=== PATIENT | female | born 1945 | race Caucasian/White ===

== ENCOUNTER 2019-04-25 14:47 | Emergency (ER) | payer MEDICARE, OTHER ==
[~2019-04-25] VITALS: Ht 157.5 cm; Wt 73.6 kg
[2019-04-25] MEDS ORDERED: LEVO50 PO (15:22)
[2019-04-25] MEDS ORDERED: CHOL200016 PO (15:22)
[2019-04-25] MEDS ORDERED: TRAZ-257 PO (15:22)
[2019-04-25] MEDS ORDERED: RISP.5 IM (15:23)
[2019-04-25] MEDS ORDERED: ATOR10TA84 PO (15:23)
[2019-04-25] MEDS ORDERED: ACETAMINOPHEN 500 MG TABLET PO ONE (15:30)
[2019-04-25 17:01] VITALS: BP 145/85
== END 2019-04-25 17:15 | disposition home or self-care (01) ==
LOC: EMS 14:51 → EDBD 14:51 → EMS 17:15
DX: S80.02XA Contusion of left knee, initial encounter (principal); S80.01XA Contusion of right knee, initial encounter; F32.9 Major depressive disorder, single episode, unspecified; E78.00 Pure hypercholesterolemia, unspecified; F20.9 Schizophrenia, unspecified; E03.9 Hypothyroidism, unspecified; W19.XXXA Unspecified fall, initial encounter; Y93.89 Activity, other specified; Y92.89 Other specified places as the place of occurrence of the external cause; Y99.8 Other external cause status

== ENCOUNTER 2019-08-01 19:33 | Emergency (ER) | payer MEDICARE, OTHER ==
[~2019-08-01] VITALS: Ht 162.6 cm; Wt 82.3 kg
[~2019-08-01 19:33] MED LIST: ATOR10TA84 PO; CHOL200016 PO; LEVO50 PO; RISP.5 IM; TRAZ-257 PO
[2019-08-01 19:45] VITALS: BP 113/61
== END 2019-08-01 20:10 | disposition home or self-care (01) ==
LOC: EMS 19:34
DX: R42 Dizziness and giddiness (principal); F32.9 Major depressive disorder, single episode, unspecified; E78.00 Pure hypercholesterolemia, unspecified; E03.9 Hypothyroidism, unspecified; F20.9 Schizophrenia, unspecified; Z79.899 Other long term (current) drug therapy; W19.XXXA Unspecified fall, initial encounter; Y93.89 Activity, other specified; Y92.89 Other specified places as the place of occurrence of the external cause; Y99.8 Other external cause status